=== PATIENT | male | born 1940 | race African-American/Black ===

== ENCOUNTER 2017-08-01 16:05 | Emergency (ER) | payer MEDICARE, OTHER ==
[2017-08-01] MEDS ORDERED: Ketorolac Tromethamine 30 MG/ML VIAL ONE (16:47)
[2017-08-01 17:01] LABS: #Basophils 0.1 thou/uL (0.0-0.2); #Lymphocytes 1.9 thou/uL (1.20-3.40); #Monocytes 0.6 thou/uL (0.11-0.59); %Basophils 1.2 % (0.0-1.0); %Eosinophils 0.1 % (0.0-10.0); %Lymphocytes 24.8 % (21.0-51.0); %Monocytes 8.2 % (0.0-10.0); %Neutrophils 65.7 % (42.0-75.0); Hemoglobin 14.7 g/dL (14.0-18.0); Mean Corpuscular HGB CONC 30.3 g/dL (32.0-36.0); Mean Corpuscular Hemoglobin 27.2 pg (27.0-31.0); Mean Corpuscular Volume 89.7 fl (80.0-94.0); Mean Platelet Volume 10.2 fL (7.4-10.4); Platelet Count 187 thou/uL (130-400); RBC Distribution Width 12.7 % (11.5-14.5); Red Blood Cell (RBC) Count 5.42 mill/uL (4.70-6.10); White Blood Cell (WBC) Count 7.6 thou/uL (4.8-10.8)
[2017-08-01 17:17] LABS: ALT (SGPT) 10 U/L (8-55); AST (SGOT) 11 U/L (5-34); Albumin 4.2 g/dL (3.4-4.8); Alkaline Phosphatase 86 U/L (40-150); Anion Gap 16 mmol/L (10-20); BUN (Urea Nitrogen) 27 mg/dL (8.4-25.7); Bilirubin, Total 0.3 mg/dL (0.2-1.2); Calc. Creatinine Clearance 0 mL/min (70-130); Carbon Dioxide 25 mmol/L (23-31); Chloride 103 mmol/L (98-107); Estimated GFR-MDRD 76; Globulin 3.6 g/dL (2.4-3.5); Glucose 104 mg/dL (83-110); Potassium 3.6 mmol/L (3.5-5.1); Protein, Total 7.8 g/dL (5.8-8.1); Sodium 140 mmol/L (136-145)
[2017-08-01 17:18] LABS: CKMB 1.1 ng/mL (0-6.6); Troponin I Less than 0.010 ng/mL (< 0.028)
--- NOTE | 2017-08-01 17:51 | RAD ---
CHEST TWO VIEW 08/01/17 HISTORY: Chest pain. COMPARISON: Chest two view from 2013. FINDINGS: The lungs are clear. No pneumothorax or effusion. The cardiac silhouette and mediastinal contours ar e normal. IMPRESSION: No acute intrathoracic abnormality. POS: ADALBERT[facility]
--- NOTE | 2017-08-01 18:10 | RAD ---
RIGHT SHOULDER THREE VIEW 08/01/17 HISTORY: Pain. COMPARISON: None. 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 The visualized ribs are intact . There is a subacrominal spur slightly narrowing the subacromial space. IMPRESSION: 1. No acute fracture or malalignment. 2. Subacromial spur likely causing subacromial impingement on the rotator cuff. MRI may be help ful. POS: [facility]
== END 2017-08-01 18:15 | disposition home or self-care (01) ==
LOC: NAV ERS 16:05
DX: M75.41 Impingement syndrome of right shoulder (principal); E11.9 Type 2 diabetes mellitus without complications; E78.2 Mixed hyperlipidemia; I10 Essential (primary) hypertension; Z85.46 Personal history of malignant neoplasm of prostate; Z87.891 Personal history of nicotine dependence; Z79.82 Long term (current) use of aspirin; Z79.899 Other long term (current) drug therapy
CPT/HCPCS: 71020; 80053; 82553; 84484; 85025; 93005; 96374; J1885

== ENCOUNTER → 2019-02-17 | Emergency (ER) | payer MEDICARE, OTHER ==
[2019-02-17 11:55] LABS: #Basophils 0.1 thou/uL (0.0-0.2); #Eosinphils 0.1 thou/uL (0.0-0.7); #Monocytes 0.6 thou/uL (0.11-0.59); #Neutrophils 2.5 thou/uL (1.40-6.50); %Basophils 1.8 % (0.0-1.0); %Eosinophils 2.1 % (0.0-10.0); %Lymphocytes 38.2 % (21.0-51.0); %Monocytes 11.1 % (0.0-10.0); %Neutrophils 46.8 % (42.0-75.0); Hemoglobin 12.9 g/dL (14.0-18.0); Mean Corpuscular HGB CONC 31.2 g/dL (32.0-36.0); Mean Corpuscular Hemoglobin 26.7 pg (27.0-31.0); Mean Corpuscular Volume 85.8 fL (78.0-98.0); Mean Platelet Volume 9.1 fL (7.4-10.4); Platelet Count 171 thou/uL (130-400); RBC Distribution Width 12.9 % (11.5-14.5); Red Blood Cell (RBC) Count 4.83 mill/uL (4.70-6.10); White Blood Cell (WBC) Count 5.3 thou/uL (4.8-10.8)
--- NOTE | 2019-02-17 12:03 | CT ---
CT Cervical Spine WO Con Indication: Fall on Thursday with neck injury COMPARISON: MR cervical spine without contrast dated November 17, 2002 FINDINGS: Acute fracture/subluxation: None. Spinal alignment: There is very subtle anterior translation of C4 on C5 which is likely degenerative. Craniocervical junction: Within normal limits. Vertebral body heights: Maintained. Cervical spine degenerative change: There are bulky anterior projecting osteophytes off of the cervic al spine consistent with DISH like changes. 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 There is multifocal levels of central canal and neural foraminal narrowing that have progressed since 2002. One of the most pronounced areas of central canal narrowing is at C3-4 due to the ossification of the posterior longitudinal ligament and disc degenerative disease inducing at least moderate to severe central canal narrowing with moderate to severe right neural foraminal narrowing. At C4-5 there is [id number] central canal narrowing with moderate to severe right and moderate left neural foraminal narrowing. There is mild central canal narrowing at C5-6 due to a disc osteophyte complex with mild bilateral neural foraminal narrowing. Mild central canal narrowing is seen at C6-7 due to a disc osteophyte complex. Lung apices: Clear. IMPRESSION: No acute fracture or subluxation. Severe multilevel spondylosis of the cervical spine as detailed abo ve
[2019-02-17 12:04] LABS: ALT (SGPT) 11 U/L (8-55); AST (SGOT) 16 U/L (5-34); Albumin 3.7 g/dL (3.4-4.8); Alkaline Phosphatase 84 U/L (40-150); Anion Gap 13 mmol/L (10-20); BUN (Urea Nitrogen) 23 mg/dL (8.4-25.7); Bilirubin, Total 0.3 mg/dL (0.2-1.2); Calc. Creatinine Clearance 0 mL/min (70-130); Calcium 8.7 mg/dL (7.8-10.44); Carbon Dioxide 27 mmol/L (23-31); Chloride 105 mmol/L (98-107); Estimated GFR-MDRD 73; Glucose 134 mg/dL (83-110); Potassium 4.2 mmol/L (3.5-5.1); Protein, Total 6.7 g/dL (5.8-8.1); Sodium 141 mmol/L (136-145)
--- NOTE | 2019-02-17 12:04 | CT ---
CT Head without IV contrast COMPARISON: None available. HISTORY: Head injury. TECHNIQUE: Axial CT imaging at 5 mm intervals from vertex through skull base without contrast FINDINGS: There is no evidence of an acute infarction, hemorrhage, mass effect, or midline shift. There is decr eased attenuation seen in the periventricular white matter which is nonspecific but likely attributable to chronic small vessel ischemic changes. A low-density focus is seen in the inferior as pect of the right basal ganglia likely due to dilated perivascular space versus remote lacunar infarction. There is a small approximately 9 mm increased density left parafalcine mass at the vertex which does appear dural based and most likely represents a small meningioma. There is mild cerebral volume loss. The ventricular system is normal in size, shape, and position for the degree of sulcal atrophy. Mucous retention cyst as well as mucosal thickening are seen in each maxillary antrum with minimal mu cosal thickening seen in a few ethmoidal air cells anteriorly and bilaterally. Mastoid air cells are clear. Osseous structures appear intact. No calvarial fracture is seen IMPRESSION: 1. No acute intracranial abnormality demonstrated. 2. Chronic small vessel ischemic changes and cerebral volume loss. 3. 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
--- NOTE | 2019-02-17 12:07 | RAD ---
PORTABLE CHEST 1 VIEW: DATE: 02/17/2019. TIME: 11:40 a.m. HISTORY: Syncope, fall. FINDINGS: Comparison is made with the exam of 08/01/2017. The heart size is normal. The lungs are expanded without focal areas of consolidation, pneumothorace s, or pleural effusions. There are degenerative changes in the spine. IMPRESSION: No acute process. POS: ADALEBRTO
== END ==
LOC: NAV ERS 10:51
DX: R51 Headache (principal); R06.00 Dyspnea, unspecified; R93.0 Abnormal findings on diagnostic imaging of skull and head, not elsewhere classified; E11.9 Type 2 diabetes mellitus without complications; E78.2 Mixed hyperlipidemia; I10 Essential (primary) hypertension; Z87.891 Personal history of nicotine dependence; Z79.899 Other long term (current) drug therapy; Z79.82 Long term (current) use of aspirin; W19.XXXA Unspecified fall, initial encounter
CPT/HCPCS: 70450; 71045; 72125; 80053; 84484; 85025; 85379; 93005; 94760

== ENCOUNTER 2019-03-25 10:50 | Emergency (ER) | payer MEDICARE, OTHER | END 2019-03-25 11:23 | disposition home or self-care (01) | LOC: NAV ERS 10:50 | DX: L03.116 Cellulitis of left lower limb (principal); E11.9 Type 2 diabetes mellitus without complications; E78.2 Mixed hyperlipidemia; I10 Essential (primary) hypertension; Z87.891 Personal history of nicotine dependence; Z79.899 Other long term (current) drug therapy; Z79.82 Long term (current) use of aspirin | CPT/HCPCS: 99283 ==

== ENCOUNTER 2020-10-08 14:01 | Outpatient (CLI) | payer MEDICARE, MEDICAID ==
--- NOTE | 2020-10-08 15:01 | RAD ---
RIGHT KNEE 2 VIEWS: HISTORY: Chronic pain and osteoarthritis. COMPARISON: None. 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 No acute fracture or malalignment. Moderate medial compartment height loss with osteophyte formation and subtle cortical sclerosis. Small lateral compartment osteophytes. IMPRESSION: Chronic degenerative change, greatest in the medial compartment. No acute osseous abnormality. POS: [facility]
--- NOTE | 2020-10-08 15:09 | RAD ---
LEFT KNEE 2 VIEWS: HISTORY: Chronic pain and osteoarthritis. COMPARISON: None. FINDINGS: Chronic enthesopathic changes in the distal quadriceps tendon as well as the proximal distal patella tendon. Advanced degenerative disease of the proximal tibiofibular joint. Advanced medial compartment degenerative change with sclerosis, joint space narrowing, and osteophyte formation. Large patellofemoral and lateral compartment osteophytes are also present. IMPRESSION: Advanced degenerative changes, greatest in the medial compartment. POS: HOME
== END 2020-10-08 14:02 | disposition home or self-care (01) ==
LOC: NAV RAD 14:01
PROVIDERS: ATTEND Family Medicine
DX: M17.0 Bilateral primary osteoarthritis of knee (principal); G89.4 Chronic pain syndrome

== ENCOUNTER 2020-10-25 11:24 | Emergency (ER) | payer MEDICARE, OTHER | END 2020-10-25 11:55 | disposition home or self-care (01) | LOC: NAV ERS 11:24 | DX: L03.116 Cellulitis of left lower limb (principal); E11.9 Type 2 diabetes mellitus without complications; E78.5 Hyperlipidemia, unspecified; E78.1 Pure hyperglyceridemia; E78.00 Pure hypercholesterolemia, unspecified; I10 Essential (primary) hypertension; Z85.46 Personal history of malignant neoplasm of prostate; Z79.899 Other long term (current) drug therapy; Z79.82 Long term (current) use of aspirin | CPT/HCPCS: 99283 ==

== ENCOUNTER 2022-06-23 10:52 | Emergency (ER) | payer MEDICARE, MEDICAID | END 2022-06-23 11:45 | disposition home or self-care (01) | LOC: NAV ERS 10:52 | DX: L03.116 Cellulitis of left lower limb (principal); E11.9 Type 2 diabetes mellitus without complications; E78.2 Mixed hyperlipidemia; I10 Essential (primary) hypertension; Z79.899 Other long term (current) drug therapy; Z79.82 Long term (current) use of aspirin; Z79.2 Long term (current) use of antibiotics; Z79.84 Long term (current) use of oral hypoglycemic drugs | CPT/HCPCS: 10060; 87070; 87205 ==

== ENCOUNTER 2024-09-26 11:11 | Emergency (ER) | payer OTHER, MEDICAID ==
[2024-09-26] MEDS ORDERED: Acetaminophen 500 MG TAB ONE (11:30)
== END 2024-09-26 12:30 | disposition home or self-care (01) ==
LOC: NAV ERS 11:11
DX: J10.1 Influenza due to other identified influenza virus with other respiratory manifestations (principal); I10 Essential (primary) hypertension; E11.9 Type 2 diabetes mellitus without complications; E78.00 Pure hypercholesterolemia, unspecified; I48.91 Unspecified atrial fibrillation; I25.10 Atherosclerotic heart disease of native coronary artery without angina pectoris; Z79.02 Long term (current) use of antithrombotics/antiplatelets; Z79.84 Long term (current) use of oral hypoglycemic drugs; Z79.82 Long term (current) use of aspirin; Z79.899 Other long term (current) drug therapy
CPT/HCPCS: 87428; 99284